=== PATIENT | female | born 1985 | race Hispanic/Latino ===

== ENCOUNTER 2022-01-14 00:53 | Emergency (ER) | payer OTHER ==
[~2022-01-14] VITALS: Ht 152.4 cm; Wt 74.8 kg
[2022-01-14] MEDS ORDERED: LMX 45 G1 TOP (01:43)
[2022-01-14] MEDS ORDERED: MIRALAX17 GM PO (01:43)
[2022-01-14] MEDS ORDERED: [UNRECOGNIZED DRUG - OTHER] RC (01:43)
[2022-01-14] MEDS ORDERED: sitz bath (01:43)
== END 2022-01-14 01:50 | disposition home or self-care (01) ==
LOC: ER 01:00
DX: K64.9 Unspecified hemorrhoids (principal); E11.9 Type 2 diabetes mellitus without complications; F17.210 Nicotine dependence, cigarettes, uncomplicated
CPT/HCPCS: 99282